=== PATIENT | male | born 1960 | race African-American/Black ===

== ENCOUNTER 2020-10-12 15:23 | Emergency (ER) | payer MEDICAID ==
[~2020-10-12] VITALS: Ht 175.3 cm; Wt 85.0 kg
[2020-10-12] MEDS ORDERED: SODIUM CHLORIDE 0.9% 1,000 ML IV ONE (15:45)
[2020-10-12 15:49] LABS: BASOPHILS % 0.6 % (0.0-2.0); EOSINOPHILS % 3.7 % (0.0-5.0); HEMATOCRIT. 44.5 % (42.0-52.0); HEMOGLOBIN. 14.8 g/dL (14.0-18.0); MEAN CORPUSCULAR HEMOGLOBIN 29.4 pg (28.0-32.0); MEAN CORPUSCULAR VOLUME 88.3 fL (80.0-94.0); MEAN PLATELET VOLUME 8.3 fl (7.4-10.4); MONOCYTES % 8.3 % (2.0-8.0); NEUTROPHILS % 62.4 % (40.0-76.0); PLATELET 179 x1000/uL (130-400); RED BLOOD CELL COUNT 5.04 mill/uL (4.7-6.1); RED CELL DISTRIBUTION WIDTH 14.3 % (11.6-14.6)
[2020-10-12 15:57] LABS: INR 1.1; PROTHROMBIN TIME 11.9 sec (9.6-11.0)
[2020-10-12] MEDS ORDERED: LIDOCAINE HCL 1% 20ML VIAL (Pyxis) INJ INFIL ONE (16:15)
[2020-10-12 16:17] LABS: CHLORIDE 107 mEq/L (98-107)
[2020-10-12 16:21] LABS: ETHANOL BLOOD 106 mg/dL
[2020-10-13 01:51] VITALS: BP 132/81
== END 2020-10-13 01:52 | disposition home or self-care (01) ==
LOC: ER 15:23
DX: S01.01XA Laceration without foreign body of scalp, initial encounter (principal); S06.0X0A Concussion without loss of consciousness, initial encounter; X99.0XXA Assault by sharp glass, initial encounter; R26.0 Ataxic gait; F10.129 Alcohol abuse with intoxication, unspecified; Y90.5 Blood alcohol level of 100-119 mg/100 ml; R45.1 Restlessness and agitation; I10 Essential (primary) hypertension; Z87.19 Personal history of other diseases of the digestive system; Y93.89 Activity, other specified; Y92.811 Bus as the place of occurrence of the external cause
CPT/HCPCS: 36415; 70450; 72125; 80053; 80320; 85025; 85610; 93005; 96360; 99285; J3490; J7030; Z7610; G0480

== ENCOUNTER 2021-06-22 12:02 | Emergency (ER) | payer MEDICAID, OTHER ==
[~2021-06-22] VITALS: Ht 180.3 cm; Wt 100.0 kg
[2021-06-22 12:09] VITALS: BP 158/80
== END 2021-06-22 12:56 | disposition left against medical advice (07) ==
LOC: ER 12:02
DX: Z53.21 Procedure and treatment not carried out due to patient leaving prior to being seen by health care provider (principal)